=== PATIENT | female | born 1960 ===

== ENCOUNTER 2021-01-11 07:42 | Outpatient (RCR) | payer OTHER, SELFPAY ==
[2021-01-11] MEDS: ACETAMINOPHEN 325 MG TABLET 650 MG PO (11:07)
[2021-01-11] MEDS: diphenhydrAMINE HCl CAP 25 MG CAPSULE PO (11:07)
[2021-01-11] MEDS: FAMOTIDINE 20 MG TABLET PO (11:08)
[2021-01-11 11:18] VITALS: BP 115/75; PULSE 67; RESP 18; TEMP 36.3; O2SAT 98
[2021-01-11 12:43] VITALS: BP 111/70
--- NOTE | 2021-01-12 13:18 | PC.NURSE ---
patient called and stated overall she felt better. however she had new onset sore throat. no complaints of swallowing or trouble breathing. advised her to call her primary physician.
== END 2021-01-11 15:25 | disposition home or self-care (01) ==
LOC: AMCINF 07:42
PROVIDERS: PCP Family Medicine; Referring Provider Family Medicine; Visit Provider Internal Medicine Hematology & Oncology
DX: Z23 Encounter for immunization (principal); U07.1 COVID-19; J44.9 Chronic obstructive pulmonary disease, unspecified
CPT/HCPCS: A9270; J7050; M0243

== ENCOUNTER 2021-01-13 13:50 | Emergency (ER) | payer OTHER, SELFPAY ==
--- NOTE | ~2021-01-13 | XR_ITS ---
XR chest 1V portable DATE: 01/13/2021 15:03 INDICATION: Weakness TECHNIQUE: Portable AP chest on 01/13/2021 at 1458 hours COMPARISON: 06/15/2009 two-view chest FINDINGS: No pulmonary infiltrate or consolidation, pleural effusion or pulmonary vascular congestion or pneumothorax. Heart size appears within normal range. No hilar or mediastinal enlargement. Diffuse osteopenia. Surgical clips overlie the right chest and axilla. IMPRESSION: No active cardiopulmonary disease Reviewed, dictated and finalized at location A.
[2021-01-13 13:57] VITALS: BP 122/87; PULSE 61; RESP 18; TEMP 36.5; O2SAT 100
--- NOTE | 2021-01-13 14:49 | ECG_ITS ---
Measurements Intervals [place] Rate: 60 P: 56 MA: 159 QRS: -22 QRSD: 95 T: 33 QT: 416 QTc: 419 Interpretive Statements SINUS RHYTHM POSSIBLE LEFT ATRIAL ENLARGEMENT INCOMPLETE RIGHT BUNDLE BRANCH BLOCK BASELINE WANDER- V3 BORDERLINE ECG Electronically Signed On 01-13-2021 16:22:36 CDT by Gucci Shine D.O.
--- NOTE | 2021-01-13 15:08 | ED.GENADULT ---
HPI - General Adult General Chief complaint: Weakness Stated complaint: COVID +, not feeling well Time Seen by Provider: 01/13/21 15:08 Source: patient and RN notes reviewed Mode of arrival: ambulatory Limitations: no limitations History of Present Illness HPI narrative: Patient had Covid symptoms on January 01, 2 days later tested positive for COVID-19 infection. Her symptoms are improving except been having almost persistent nausea. Patient denies any fever, chills, vomiting, diarrhea or respiratory symptoms. Patient is not vaccinated for COVID-19 Related Data Allergies Allergy/AdvReac Type Severity Reaction Status Date / Time cephalexin Allergy Unknown Skin Verified 01/13/21 14:37 Reaction ciprofloxacin Allergy Unknown Unknown Verified 01/13/21 14:37 erythromycin base Allergy Unknown Nausea Verified 01/13/21 14:37 nitrofurantoin Allergy Unknown Nausea Verified 01/13/21 14:37 Review of Systems Review of Systems: CONSTITUTIONAL: Denies fever, chills, or sweats. EYES: Denies visual changes, redness, or discharge. ENT: Denies rhinorrhea, congestion, sore throat, or otalgia. CARDIOVASCULAR: Denies chest pain, palpitations, or edema. RESPIRATORY: Denies cough or dyspnea. GASTROINTESTINAL: Nausea GENITOURINARY: Denies dysuria or hematuria. SKIN: Denies rash or itching. MUSCULOSKELETAL: Denies back pain, joint pain, or myalgia. NEUROLOGIC: Denies headache, numbness, or weakness. PSYCHIATRIC: Denies anxiety or depression. [facility] Family History Family History Other Diabetes mellitus Family history of kidney disease Social History Social History Smoking status: Never smoker Alcohol intake: current Spiritual care concerns: No Exam Narrative: General appearance: Well-developed, well-nourished Skin: Normal color Head: Normocephalic, nontraumatic Eyes: Clear conjunctiva ENT: Oropharynx normal, ears normal, nose normal Neck: Supple, nontender Chest and respiratory: Airway patent, no respiratory distress, no accessory muscle use Heart: Regular rate/rhythm Abdomen: Soft, nontender, no organomegaly, quiet bowel sounds Vascular: Normal peripheral pulses, normal capillary refill. Musculoskeletal: Normal range of motion, nontender back Neurologic: Alert and oriented ?3, [employer] is normal as tested, no gross motor deficit Course Course Emergency Course: Stable Vital Signs Vital signs: Vital Signs Temperature 36.5 C 01/13/21 13:57 Pulse Rate 61 01/13/21 13:57 Respiratory Rate 18 01/13/21 13:57 Blood Pressure 122/87 01/13/21 13:57 Pulse Oximetry 100 01/13/21 13:57 Temperature 36.5 C 01/13/21 13:57 Pulse Rate 61 01/13/21 13:57 Respiratory Rate 18 01/13/21 13:57 Blood Pressure 122/87 01/13/21 13:57 Pulse Oximetry 100 01/13/21 13:57 Medical Decision Making MDM Narrative Medical decision making narrative: COVID-19 infection syndrome is my concern. Labs ordered to rule out the possibility of electrolyte imbalance, renal failure or elevated liver enzymes. Differential Diagnosis Differential Diagnosis: Covid infection, electrolyte imbalance Vital Signs Vital Signs: Vital Signs Temperature 36.5 C 01/13/21 13:57 Pulse Rate 61 01/13/21 13:57 Respiratory Rate 18 01/13/21 13:57 Blood Pressure 122/87 01/13/21 13:57 Pulse Oximetry 100 01/13/21 13:57 Temperature 36.5 C 01/13/21 13:57 Pulse Rate 61 01/13/21 13:57 Respiratory Rate 18 01/13/21 13:57 Blood Pressure 122/87 01/13/21 13:57 Pulse Oximetry 100 01/13/21 13:57 Imaging Data Radiologist's impression: Impr
[2021-01-13 15:25] LABS: Basophils Percent Auto 0.3 % (0.2-1.2); Eosinophils Absolute Auto 0.1 K/mm3 (0-0.3); Hematocrit 35.4 % (37.0-47.0); Hemoglobin 12.4 g/dL (12.0-15.0); Immature Granulocyte Absolute 0.02 K/mm3 (0.00-0.031); Immature Granulocyte Percent A 0.3 % (0-0.5); Lymphocytes Percent Auto 27.1 % (18.3-44.2); Mean Corpuscular Hemoglobin 31.6 pg (26-34); Mean Corpuscular Volume 90.3 fl (80-100); Mean Platelet Volume 9.2 fl (7.4-10.4); Monocytes Absolute Auto 0.4 K/mm3 (0.1-0.6); Monocytes Percent Auto 5.9 % (2.6-8.5); Neutrophils Absolute Auto 3.9 K/mm3 (1.3-6.7); Neutrophils Percent Auto 65.4 % (45.5-73.1); Platelet Count Result 283 k/mm3 (150-375); Red Blood Count 3.92 M/mm3 (4.2-5.4); Red Cell Distribution Width 11.8 % (11.5-14.5); White Blood Count 5.9 K/mm3 (4.5-10.0)
[2021-01-13 15:55] LABS: Alanine Aminotransferase 22 U/L (4-35); Alkaline Phosphatase 78 U/L (38-126); Anion Gap 8 mmol/L (8-16); Aspartate Amino Transferase 31 U/L (14-36); Bilirubin,Total 0.4 mg/dL (0.2-1.3); Blood Urea Nitrogen 5 mg/dL (7-17); Calcium 8.8 mg/dL (8.4-10.2); Carbon Dioxide 23 mmol/L (22-30); Chloride 98 mmol/L (98-107); Estimated CRCL calculation 103 ml/min; Estimated Glomerular Filt Rate > 60; Glucose 108 mg/dL (65-110); Potassium 3.5 mmol/L (3.4-5.0); Sodium 129 mmol/L (137-145)
[2021-01-13 16:10] LABS: Add Urine Microscopic? YES; Appearance Urine Clear (Clear); Bacteria Urine Trace /hpf; Bilirubin Urine Negative (Negative); Blood Urine Negative (Negative); Color Urine Yellow (Yellow); Glucose Urine UA Negative (Negative); Ketones Urine Negative (Negative); Leukocyte Esterase Ur Trace LEU/UL (Negative); Nitrate Urine Negative (Negative); Protein Urine Negative (Negative); RBC Urine 0-2 /hpf (0-2); Squamous Epithelial Cell Urine Many /hpf (Few); Urobilinogen Urine Negative mg/dL (<2.0); WBC Urine 0-3 /hpf
[2021-01-13] MEDS: ONDANSETRON HCL ODT 4 MG TABLET 8 MG PO (16:11)
[2021-01-13 16:12] VITALS: BP 121/86; PULSE 59; RESP 15; O2SAT 96
[2021-01-13 16:31] VITALS: BP 125/81; PULSE 51; RESP 14; O2SAT 96
[2021-01-13 16:45] VITALS: PULSE 61; RESP 13
[2021-01-13] MEDS: SODIUM CHLORIDE 0.9% IV 1,000 ML 999 ML IV CONT (17:19)
[2021-01-13 17:32] LABS: Platelet Estimate Adequate (Adequate)
[2021-01-13 17:33] LABS: Atypical Lymphocytes Present
[2021-01-13 17:54] VITALS: BP 125/80; PULSE 45; RESP 14; O2SAT 96
== END 2021-01-13 18:09 | disposition home or self-care (01) ==
PROVIDERS: Emergency Provider Emergency Medicine; PCP Family Medicine
DX: U07.1 COVID-19 (principal); R11.0 Nausea; E87.1 Hypo-osmolality and hyponatremia
CPT/HCPCS: 36415; 71045; 80053; 81001; 85025; 93005; 96360; 99283; A9270; J7030

== ENCOUNTER 2023-11-26 14:47 | Emergency (ER) | payer BC, SELFPAY ==
[2023-11-26 14:52] VITALS: BP 150/80; PULSE 89; RESP 16; TEMP 36.4; O2SAT 98
--- NOTE | 2023-11-26 14:54 | ED.ALLEREA ---
HPI - Allergic Reaction General Chief complaint: Allergic Reaction Stated complaint: allregic rxn 63-year-old female presents to the emergency room for evaluation of allergic reaction to peanuts. Patient states that she has are any follow-up with her PCP regarding this. PCP put her on 50 mg of prednisone daily. Patient is taking Pepcid once in the a.m. with clear 10 and Benadryl at night. Patient states she still experiencing waves of warmth in her hands and feet and occasional sensation of her throat closing. Related Data Allergies Allergy/AdvReac Type Severity Reaction Status Date / Time Penicillins AdvReac Unknown Verified 11/26/23 15:09 Course Vital Signs Vital signs: Vital Signs Temperature 36.4 C 11/26/23 14:52 Pulse Rate 89 11/26/23 14:52 Respiratory Rate 16 11/26/23 14:52 Blood Pressure 150/80 H 11/26/23 14:52 Pulse Oximetry 98 11/26/23 14:52 Oxygen Delivery Room Air 11/26/23 14:52 Temperature 36.4 C 11/26/23 14:52 Pulse Rate 89 11/26/23 14:52 Respiratory Rate 16 11/26/23 14:52 Blood Pressure 150/80 H 11/26/23 14:52 Pulse Oximetry 98 11/26/23 14:52 Oxygen Delivery Room Air 11/26/23 14:52 Discharge Plan Discharge Clinical Impression: Allergic reaction Patient Disposition: Elopement After Seen by Prov Condition: Stable Instructions: General Allergic Reaction (ED) Follow-up/Referrals: Belkis Hankins MD [Primary Care Provider] -
--- NOTE | 2023-11-26 16:11 | PC.NURSE ---
Pt reports she is feeling better and will follow up with pmd. Ambulatory out of dept with steady gait.
== END 2023-11-26 16:24 | disposition left against medical advice (07) ==
LOC: ANHED 16:21
PROVIDERS: Emergency Provider Nurse Practitioner Family; PCP Family Medicine
DX: T78.1XXA Other adverse food reactions, not elsewhere classified, initial encounter (principal)
CPT/HCPCS: 99199; 99281